=== PATIENT | female | born 1985 | race Caucasian/White ===

== ENCOUNTER 2024-05-03 06:26 | Day surgery (SDC) | payer OTHER, SELFPAY | END 2024-05-03 12:12 | disposition home or self-care (01) | LOC: GI 06:26 | PROVIDERS: ATTENDING PHYSICIAN Internal Medicine Gastroenterology | DX: K62.5 Hemorrhage of anus and rectum (principal); K63.89 Other specified diseases of intestine; R19.4 Change in bowel habit; K52.9 Noninfective gastroenteritis and colitis, unspecified; K62.89 Other specified diseases of anus and rectum; D12.4 Benign neoplasm of descending colon | CPT/HCPCS: 45385; 45380; 88305 ==